=== PATIENT | male | born 1990 | race Asian ===

== ENCOUNTER 2020-06-19 20:40 | Inpatient (IN) ==
[2020-06-19 21:38] LABS: ABS Eosinophils 0.2 10^3/ul (0-0.6); ABS Monocytes 0.6 10^3/ul (0-0.8); ABS Neutrophils 3.5 10^3/ul (1.5-7.7); Eosinophil % 2.8 %; Hematocrit 46 % (42-52); Hemoglobin 15.4 g/dL (14.0-18.0); Lymphocyte % 31.7 %; Mean Corpuscular HGB Conc 34 g/dL (31-36); Mean Corpuscular Hemoglobin 31 pg (27-31); Mean Corpuscular Volume 91 fL (80-94); Mean Platelet Volume 8.7 fL (7.4-10.4); Nucleated Red Blood Cells % 0.1; Platelet Count 248 10^3/uL (150-450); Red Blood Count 5.04 10^6 /uL (4.18-5.48); Red Cell Distribution Width 13 % (10-15); White Blood Count 6.2 10^3/uL (3.5-10.8)
[2020-06-19 21:41] LABS: Urine Appearance Clear; Urine Bilirubin Negative (Negative); Urine Blood Negative (Negative); Urine Color Yellow; Urine Glucose Negative (Negative); Urine Ketones Negative (Negative); Urine Nitrite Negative (Negative); Urine Protein Negative (Negative); Urine Specific Gravity 1.023 (1.002-1.030); Urine Urobilinogen Negative (Negative)
[2020-06-19 21:59] LABS: ALT 14 U/L (7-52); AST 19 U/L (13-39); Albumin 4.5 g/dL (3.2-5.2); Albumin/Globulin Ratio 1.7 (1-3); Alkaline Phosphatase 58 U/L (34-104); Anion Gap 8 mmol/L (2-11); BUN/Creatinine Ratio 14.9 (8-20); Blood Urea Nitrogen 14 mg/dL (6-24); CO2 Carbon Dioxide 26 mmol/L (22-32); Calcium 9.2 mg/dL (8.6-10.3); Chloride 104 mmol/L (101-111); EGFR Non-African American 94.2 (>60); Globulin 2.7 g/dL (2-4); Glucose 103 mg/dL (70-100); Potassium 3.9 mmol/L (3.5-5.0); Sodium 138 mmol/L (135-145); Total Protein 7.2 g/dL (6.4-8.9)
[2020-06-19 22:00] LABS: Urine Benzodiazepine Screen None Detected (None Detect); Urine Cannabinoids Screen None Detected (None Detect); Urine Opiates Screen None Detected (None Detect)
[2020-06-19 22:09] LABS: Acetaminophen < 15 mcg/mL; Alcohol, S < 10 mg/dL (<10); Salicylate < 2.50 mg/dL (<30)
[2020-06-19 22:24] LABS: TSH Ultra Thyroid Stim Horm 2.94 mcIU/mL (0.34-5.60)
[2020-06-20] MEDS ORDERED: Al Hydrox/Mg Hydrox/Simet LIQ 30 ML UDC PO PRN (03:35)
[2020-06-20] MEDS: Vitamin THERAPEUTIC TAB PO SCH (10:02)
[2020-06-21] MEDS: Vitamin THERAPEUTIC TAB PO SCH (10:57)
[2020-06-22] MEDS: Vitamin THERAPEUTIC TAB PO SCH (10:11)
[2020-06-22 11:18] VITALS: BP 135/76
== END 2020-06-22 12:15 | disposition home or self-care (01) ==
LOC: ED 20:40 → BSU 06-20 01:44
PROVIDERS: ADMIT Psychiatry & Neurology Psychiatry; ATTEND Psychiatry & Neurology Psychiatry

== ENCOUNTER 2020-07-17 23:27 | Inpatient (IN) ==
[2020-07-18 04:48] LABS: ABS Eosinophils 0.1 10^3/ul (0-0.6); ABS Lymphocytes 2.1 10^3/ul (1.0-4.8); ABS Monocytes 0.5 10^3/ul (0-0.8); Eosinophil % 2.4 %; Hematocrit 44 % (42-52); Hemoglobin 14.8 g/dL (14.0-18.0); Lymphocyte % 37.2 %; Mean Corpuscular HGB Conc 34 g/dL (31-36); Mean Corpuscular Hemoglobin 31 pg (27-31); Mean Corpuscular Volume 90 fL (80-94); Mean Platelet Volume 8.1 fL (7.4-10.4); Nucleated Red Blood Cells % 0.1; Platelet Count 253 10^3/uL (150-450); Red Blood Count 4.83 10^6 /uL (4.18-5.48); Red Cell Distribution Width 13 % (10-15); White Blood Count 5.7 10^3/uL (3.5-10.8)
[2020-07-18 05:03] LABS: Albumin 3.9 g/dL (3.2-5.2); Anion Gap 6 mmol/L (2-11); CO2 Carbon Dioxide 26 mmol/L (22-32); Calcium 8.9 mg/dL (8.6-10.3); Chloride 106 mmol/L (101-111); Potassium 3.7 mmol/L (3.5-5.0); Sodium 138 mmol/L (135-145)
[2020-07-18 05:09] LABS: ALT 9 U/L (7-52); AST 13 U/L (13-39); Albumin/Globulin Ratio 1.6 (1-3); Alkaline Phosphatase 50 U/L (34-104); Blood Urea Nitrogen 19 mg/dL (6-24); EGFR African American 118.4 (>60); EGFR Non-African American 97.8 (>60); Globulin 2.4 g/dL (2-4); Glucose 103 mg/dL (70-100); Total Protein 6.3 g/dL (6.4-8.9)
[2020-07-18 05:30] LABS: Acetaminophen < 15 mcg/mL; Alcohol, S < 10 mg/dL (<10); Salicylate < 2.50 mg/dL (<30)
[2020-07-18 05:42] LABS: TSH Ultra Thyroid Stim Horm 2.97 mcIU/mL (0.34-5.60)
[2020-07-18] MEDS ORDERED: Al Hydrox/Mg Hydrox/Simet LIQ 30 ML UDC PO PRN (09:02)
[2020-07-19 08:16] LABS: HDL Cholesterol 58.1 mg/dL
[2020-07-25 20:32] LABS: Urine Appearance Clear; Urine Bilirubin Negative (Negative); Urine Blood Negative (Negative); Urine Color Yellow; Urine Glucose Negative (Negative); Urine Ketones Negative (Negative); Urine Nitrite Negative (Negative); Urine Protein Negative (Negative); Urine Specific Gravity 1.031 (1.002-1.030); Urine Urobilinogen Negative (Negative)
[2020-07-25 20:42] LABS: Urine Benzodiazepine Screen None Detected (None Detect); Urine Cannabinoids Screen None Detected (None Detect); Urine Opiates Screen None Detected (None Detect)
[2020-07-27 07:53] VITALS: BP 126/74
== END 2020-07-27 10:00 | disposition home or self-care (01) | DRG 882 ==
LOC: ED 23:27 → BSU 07-18 09:02
PROVIDERS: ADMIT Psychiatry & Neurology Psychiatry; ATTEND Psychiatry & Neurology Psychiatry